=== PATIENT | female | born 1960 | race Caucasian/White ===

== ENCOUNTER 2022-08-22 04:02 | Emergency (ER) | payer OTHER, SELFPAY ==
[2022-08-22 04:12] VITALS: BP 154/98; PULSE 91; RESP 18; TEMP 36.8; O2SAT 99; BMI 26.6
--- NOTE | 2022-08-22 04:46 | ED.GENADULT ---
HPI - General Adult General Chief complaint: Alcohol/Intoxication Stated complaint: etoh withdrawl Time Seen by Provider: 08/22/22 04:12 Source: patient Mode of arrival: ambulatory Limitations: no limitations History of Present Illness HPI narrative: 62-year-old female presents to the emergency department thinking she might be in alcohol withdrawal. She does have a history of heavy regular alcohol use and has been through alcohol treatment in the past. She reports that she had been sober for about a year, moved to our area about 2 and half weeks ago from [place]. She is now living with her son. The move has been stressful. For the last 3 days, she has been drinking a pt of vodka daily. Her last drink was about 14 hours ago. Over the last few hours she has started to feel increasingly anxious and shaky. She has not been drinking for more than 3 days, she has no history of alcohol withdrawal seizures. She has never been on medications to help with alcohol withdrawal symptoms. Denies history of liver kidney disease. No confusion, no hallucinations. Her son did drive her here. She is highly motivated to stop drinking, is interested in outpatient resources. There were no emergent type symptoms that caused her to be concerned enough to come to the emergency department in the middle of the night regarding the alcohol. Normal nutritional intake, no vomiting. As I probe further, I find that she has been out of her gabapentin. She has a history of neuropathy and takes fairly hefty amount of gabapentin, specifically 1200 mg 3 times daily. She reports that she has had difficulty with her insurance and getting this. I suspect that she is having a hard time getting out of state refills from her previous provider for this medication. She has not established with a new provider. She reports that her neuropathy has been a lot more bothersome without the medication and she thinks that she may be medicating with the alcohol because of this. She has not called for an appointment with a new provider. She reports that her past medical history is notable for hypothyroidism, hypertension, well controlled on outpatient medications. She has had a bleeding ulcer in the past but is not currently exhibiting any symptoms of gastritis or GI bleed. No recent surgery. She does have a tobacco history and prior heavy alcohol use, but only drinking the last 3 days. ROS is notable for shakiness and mild anxiety, otherwise denies times 12 systems with the exception of her ongoing neuropathy which is worse than usual because she is out of gabapentin but otherwise not changed from her baseline. Related Data Home Medications Medication Instructions Recorded Confirmed gabapentin 600 mg tablet 600 mg PO TID 08/22/22 08/22/22 levothyroxine 125 mcg tablet 125 mcg PO DAILY 08/22/22 08/22/22 (Euthyrox) lisinopril 10 mg tablet 10 mg PO DAILY 08/22/22 08/22/22 pantoprazole 40 mg tablet,delayed 40 mg PO DAILY 08/22/22 08/22/22 release (Protonix) Previous Rx's Medication Instructions Recorded gabapentin 600 mg tablet 1,200 mg (2 x 600 mg) PO TID #20 08/22/22 tabs Allergies Allergy/AdvReac Type Severity Reaction Status Date / Time No Known Drug Allergies Allergy Verified 08/22/22 04:18 [facility] Medical History GERD (gastroesophageal reflux disease) ?K21.9 - Gastro-esophageal reflux disease without esophagitis (ICD-10) Hypothyroidism ?E03.9 - Hypothyroidism, unspecified (ICD-10) History of alcohol abuse ?F10.11 - Alcohol abuse, in remission (ICD-10) Hypertension ?I10 - Essential (primary) hypertension (ICD-10) Surgical History No significant past surgical history Social History Smoking Status: Never smoker Do you use any of these nicotine containing products: Vaping Products Second hand tobacco smoke exposure: No How often do you have a drink containing alcohol: 2-4 times a month AUDIT-C Alcohol total score: 2 Non-prescribed substance use: denies use Exam Const: Vital Signs, click to edit/add: Vital Signs - 24 hr 08/22/22 04:12 Temperature 98.2 F Pulse Rate [Right Pulse Oximeter] 91 Respiratory Rate 18 Blood Pressure [Ri ght Upper Arm] 154/98 H Pulse Oximetry 99 Oxygen Delivery Me thod Room Air Documenting provider has reviewed patient's vital signs: yes Common normals: no apparent distress General appearance: cooperative Other: Normal mentation, good historian. HENMT: Common normals: normocephalic Head and scalp: normocephalic Mouth: oral and palatal mucosa normal Throat: posterior oropharynx normal Eye: Common normals: conjunctivae normal General eye: normal appearance of both eyes Conjunctiva: conjunctiva(e) normal Other: No icterus or jaundice Neck & C-Spine: Common normals: full ROM and no lymphadenopathy Resp: Common normals: normal respiratory effort, no use of accessory muscles and clear to auscultation bilaterally Effort & inspection: able to speak in complete sentences Auscultation: clear to auscultation bilaterally Cardio: Common normals: regular rate, regular rhythm, S1 normal heart sound, S2 normal heart sound and no murmurs Rate: regular rate Rhythm: regular rhythm Heart sounds: S1 normal and S2 normal GI: Common normals: Normal to inspection, nondistended, normoactive bowel sounds present, soft to palpation, non-tender, no hepatosplenomegaly and no masses Palpation: soft and no hepatosplenomegaly Neuro: Speech: speech normal Gait (neuro): normal gait Motor exam: strength 5/5 throughout and no movement abnormalities noted Other: Minimal tremor to outer fingers on right hand only. Psych: Common normals: speech normal Appearance: grossly normal Attitude: engaged Activity/motor behavior: appropriate eye contact Speech: normal speech Mood and affect: euthymic mood Insight: insight good Judgement: judgment good Skin: Common normals: no rashes or lesions noted General skin exam: no rashes or lesions noted Course Course Hospital Course: Counseled patient that she is unlikely to develop severe alcohol withdrawal with only 3 days of drinking and no prior history of seizures. Calculated CIWA scores are currently quite low. Discussed that she is unlikely to develop significant nutritional deficits or organ dysfunction from only 3 days of drinking. She agrees with this in agrees with my plan to not perform blood work. I let her know that I think she is probably withdrawing just as much from the gabapentin as she is alcohol. Since she takes such a high dose, I am not comfortable prescribing this long-term for her. I did discuss rationing, see discharge instructions. Will give her 1200 mg as she claims she takes and does produce a bottle that demonstrates this. She is given this is a 1 time dose and an additional supply is sent to her pharmacy for a 3 day supply. I do recommend that she rash in this to 1 tablet morning and afternoon and 2 tablets at bedtime which would make it a 5 day supply instead. She is given a short-term supply of 0.5 mg lorazepam tablets to use for alcohol withdrawal for the next 24 hours. I am not able to given amount smaller than 10 tablets though I would only typically give 5. [facility] She is given contact information for primary care provider. She will be given a list of outpatient alcohol resources and she will call to schedule these on her own. Alarm symptoms of severe alcohol withdrawal were reviewed and written instructions were provided. She verbalizes understanding and agreement. Vital Signs Vital signs: Initial Vital Signs Temperature 98.2 F 08/22/22 04:12 Temperature Source Temporal Artery Scan 08/22/22 04:12 Pulse Rate 91 08/22/22 04:12 Respiratory Rate 18 08/22/22 04:12 Blood Pressure 154/98 H 08/22/22 04:12 Blood Pressure Mean 116 H 08/22/22 04:12 Blood Pressure Position Sitting 08/22/22 04:12 Pulse Oximetry 99 08/22/22 04:12 Oxygen Delivery Method Room Air 08/22/22 04:12 Vital Signs Temperature 98.2 F 08/22/22 04:12 Pulse Rate 91 08/22/22 04:12 Respiratory Rate 18 08/22/22 04:12 Blood Pressure 154/98 H 08/22/22 04:12 Pulse Oximetry 99 08/22/22 04:12 Oxygen Delivery Method Room Air 08/22/22 04:12 Temperature 98.2 F 08/22/22 04:12 Pulse Rate 91 08/22/22 04:12 Respiratory Rate 18 08/22/22 04:12 Blood Pressure 154/98 H 08/22/22 04:12 Pulse Oximetry 99 08/22/22 04:12 Oxygen Delivery Method Room Air 08/22/22 04:12 Discharge Plan Discharge Clinical Impression: Medication withdrawal, Alcohol withdrawal syndrome Patient Disposition: Home w/ Parent or Adult Instructions: Abuse of Alcohol (DC) Additional Instructions: Since you have only been drinking the past 3 days, your risk of severe alcohol withdrawal is very small. You are also likely experiencing some withdrawal symptoms from the very high doses of gabapentin that you take. Since you are requesting such a high dose, I am not comfortable providing this for you long-term. I would strongly consider rationing this supply by taking 1 tablet morning and afternoon, to at bedtime. This will get you through for 5 days with the supply I have prescribed. You will absolutely need to call to get in with a primary care doctor to get further refills of this and I cannot guarantee that they will agree to your previous very high dose without records. You were given your typical dose tonight which will also help combat the alcohol withdrawal. I have sent a temporary refill to [facility] here in [place]. You may pick this up in the morning. Your alcohol withdrawal symptoms should last 24 hours or less. Do not continue to drink alcohol. You have been given a temporary supply of lorazepam, a medication that will reduce the withdrawal. You may take 1-2 tablets of this up to 4 times daily. You will have more than an adequate supply of this medication to get you through this withdrawal episode. Come back to the emergency department if you become severely weak, severely confused, or have uncontrollable shaking or a seizure. My nursing team will give you a list of outpatient alcohol resources. It is not safe for you to continue consuming alcohol. You should prioritize establishing with a primary care provider so that you may get back on your gabapentin. This will also help with the alcohol cravings. I would recommend Dr. Pena, Dr. Mathias, or Dr. Kim here in [place] as a new doctor for you. Activity Level: No Restrictions Discharge Diet: Regular Diet Detail: No alcohol Prescriptions: New gabapentin 600 mg tablet 1,200 mg PO TID Qty: 20 0RF Rx Instructions: No refills will be given. Must establish with primary care provider No Action lisinopril 10 mg tablet 10 mg PO DAILY gabapentin 600 mg tablet 600 mg PO TID Patient Comments: take 2 tabs in the morning, afternoon, and evening. levothyroxine [Euthyrox] 125 mcg tablet 125 mcg PO DAILY pantoprazole [Protonix] 40 mg tablet,delayed release (DR/EC) 40 mg PO DAILY Follow Up/Referrals: Romario Pena MD [Staff Physician] - Stand Alone Forms: [employer] Info Instructions
[2022-08-22] MEDS: LORazepam 1 MG TABLET PO (04:51)
[2022-08-22] MEDS: GABAPENTIN 300 MG CAPSULE 1200 MG PO (04:51)
--- NOTE | 2022-08-22 05:02 | ED.NURSE ---
outpt etoh resource sheet given to pt on discharge.
[2022-08-22] MEDS: ONDANSETRON ODT 4 MG TAB PO (05:05)
[2022-08-22 05:09] VITALS: BP 145/74; PULSE 89; RESP 18; TEMP 36.8; O2SAT 99
[2022-08-22 05:10] VITALS: BP 145/74; PULSE 89; RESP 18; TEMP 36.8
== END 2022-08-22 05:10 | disposition home or self-care (01) ==
PROVIDERS: Emergency Provider Family Medicine
DX: F10.239 Alcohol dependence with withdrawal, unspecified (principal); T51.0X1A Toxic effect of ethanol, accidental (unintentional), initial encounter; F19.90 Other psychoactive substance use, unspecified, uncomplicated
CPT/HCPCS: 99283; 99284; A9270